=== PATIENT | female | born 1980 | race Caucasian/White ===

== ENCOUNTER 2020-06-18 15:13 | Emergency (ER) | payer OTHER ==
[~2020-06-18] VITALS: Ht 165.1 cm; Wt 74.8 kg
[2020-06-18] MEDS ORDERED: LEVO-T75 MCG PO (15:44)
[2020-06-18] MEDS ORDERED: NORCO 5-325 TA1 EAC2 PO (16:01)
[2020-06-18] MEDS ORDERED: MEDROLDOSEPACK PO (16:01)
[2020-06-18 16:16] VITALS: BP 123/78
== END 2020-06-18 16:17 | disposition home or self-care (01) ==
LOC: M.ERS 15:13
DX: M54.5 Low back pain (principal)